=== PATIENT | female | born 2005 | race Caucasian/White ===

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

== ENCOUNTER 2025-05-28 09:35 | Emergency (ER) | payer BC, OTHER ==
[~2025-05-28] VITALS: Ht 167.6 cm; Wt 77.3 kg
[2025-05-28] MEDS ORDERED: AZIT-12 (09:49)
[2025-05-28] MEDS ORDERED: CLAR1TAB13 PO (09:49)
[2025-05-28] MEDS ORDERED: FLUD0.1T (09:49)
[2025-05-28] MEDS ORDERED: TRET0.046 (09:49)
[2025-05-28] MEDS ORDERED: LISD20CA (09:49)
[2025-05-28 10:59] LABS: BASO # 0.1 10^3/uL (0.0-0.2); BASO % 0.7 % (0.0-1.0); EOS # 0.3 10^3/uL (0.0-0.5); EOS % 2.3 % (0.0-3.0); LYMPH # 2.2 10^3/uL (1.5-5.0); LYMPH % 19.3 % (24.0-44.0); MONO # 0.8 10^3/uL (0.0-0.8); MONO % 6.9 % (2.0-8.0); NEUTROPHILS # 8.0 10^3/uL (1.5-8.5); NEUTROPHILS % 69.6 % (36.0-66.0); PLATELET COUNT, AUTOMATED 310 10^3/uL (150-450)
[2025-05-28] MEDS: NS (Normal Saline) 0.9% 1,000 ML IV ONE ×2 (11:19→13:16)
[2025-05-28 11:41] LABS: CALCIUM LEVEL 9.0 MG/DL (8.5-10.1); CARBON DIOXIDE LEVEL 24 MMOL/L (20-31); CHLORIDE LEVEL 102 MMOL/L (98-107); CREATININE FOR GFR 0.70 MG/DL (0.55-1.30); GLOMERULAR FILTRATION RATE > 90.0 (>60); MAGNESIUM LEVEL 1.8 MG/DL (1.8-2.4); POTASSIUM SERUM 3.6 MMOL/L (3.5-5.1); SODIUM LEVEL 137 MMOL/L (136-145)
[2025-05-28 11:50] LABS: FREE T4 1.42 NG/DL (0.89-1.76)
[2025-05-28 11:52] LABS: HCG, SERUM QUALITATIVE NEGATIVE (NEGATIVE)
[2025-05-28 13:56] VITALS: BP 111/67; TEMP 97.8; O2SAT 100
== END 2025-05-28 14:18 | disposition home or self-care (01) ==
LOC: M ED 09:35
DX: G90.A Postural orthostatic tachycardia syndrome [POTS] (principal); Z88.0 Allergy status to penicillin